=== PATIENT | male | born 1970 | race Caucasian/White ===

== ENCOUNTER → 2023-01-07 12:37 | Outpatient (BNVA) | payer SELFPAY | PROVIDERS: Visit Provider Nurse Practitioner Family | DX: R05.9 Cough, unspecified (principal); J40 Bronchitis, not specified as acute or chronic | CPT/HCPCS: 87426 ==

== ENCOUNTER 2023-01-11 15:33 | Emergency (ER) | payer SELFPAY ==
[2023-01-11] VITALS (8 sets, daily range): BP systolic 113–157; BP diastolic 68–97; PULSE 70–97; RESP 16–26; TEMP 36.9; O2SAT 94–96; BMI 22.8
--- NOTE | 2023-01-11 15:58 | CTR_ITS ---
PROCEDURE INFORMATION: Exam: CT Head Without Contrast Exam date and time: 01/11/2023 4:08 PM Age: 52 years old Clinical indication: Altered mental status/memory loss; Confusion or disorientation; Additional info: Stroke symptoms TECHNIQUE: Imaging protocol: Computed tomography of the head without contrast. Radiation optimization: All CT scans at this facility use at least one of these dose optimization techniques: automated exposure control; mA and/or kV adjustment per patient size (includes targeted exams where dose is matched to clinical indication); or iterative reconstruction. REPORTING DATA: Count of CT and Cardiac NM exams in prior 12 months: This patient has received 0 known CTs and 0 known cardiac nuclear medicine studies in the 12 months prior to the current study. COMPARISON: No relevant prior studies available. RADIATION DOSE METRICS: Total DLP (mGy-cm): 1072.79 FINDINGS: Brain: There is a heterogeneous mass in the right posterior parietal lobe measuring 4.5 x 3.7 cm in the AP/craniocaudad dimensions with surrounding vasogenic edema and sulcal effacement. There is patchy intermediate density in the left [employer] PERSON distribution. Cerebral ventricles: No ventriculomegaly. Paranasal sinuses: Visualized sinuses are unremarkable. No fluid levels. Mastoid air cells: Visualized mastoid air cells are well aerated. Bones/joints: Unremarkable. No acute fracture. Soft tissues: Unremarkable. CT/CT head wo con* [id number] IMPRESSION: 1. Patchy intermediate density in the left [employer]IN[employer] PERSON distribution raises concern for acute to subacute infarct. MRI of the brain with diffusion-weighted images is recommended for further evaluation. 2. There is a heterogeneous mass in the right posterior parietal lobe with surrounding vasogenic edema and sulcal effacement. MRI of the brain with and without contrast recommended for further evaluation.
--- NOTE | 2023-01-11 15:58 | XRR_ITS ---
PROCEDURE INFORMATION: Exam: XR Chest Exam date and time: 01/11/2023 4:03 PM Age: 52 years old Clinical indication: Cough; Additional info: Stroke symptoms TECHNIQUE: Imaging protocol: Radiologic exam of the chest. Views: 1 view. COMPARISON: No relevant prior studies available. FINDINGS: Lungs: There are hazy bibasilar opacities. Patchy opacities are present at the left lung base including a 13.5 mm somewhat nodular opacity at the lateral aspect of the left lung base. Pleural spaces: Small to moderate right pleural effusion. Blunting of the left costophrenic angle is suggestive of a small pleural effusion. Heart/Mediastinum: The heart demonstrates diffuse enlargement. Bones/joints: Unremarkable. Other findings: . XR/XR chest 1V portable [id number] IMPRESSION: 1. Small to moderate right pleural effusion. Blunting of the left costophrenic angle is suggestive of a small pleural effusion. In combination with cardiomegaly, findings raise concern for congestive heart failure. Please correlate clinically. 2. There are patchy opacities at the left lung base including a 13.5 mm somewhat nodular opacity at the lateral aspect of the left lung base. Differential includes pneumonia and/or underlying neoplasm. 3. Hazy bibasilar opacities are nonspecific and can be seen with pneumonia and/or pulmonary edema.
[2023-01-11 16:11] LABS: Basophils % 0.2 %; Eosinophils % 0.1 %; Hematocrit 44.5 % (37-53); Lymphocytes # 1.3 10^3/uL (0.8-4.8); Mean Corpuscular HGB Conc 32.8 g/dL (30-55); Mean Corpuscular Hemoglobin 29.1 pg (27-33); Mean Corpuscular Volume 88.8 fl (82-101); Mean Platelet Volume 8.9 fL (7.4-10.4); Monocytes # 1.4 10^3/uL (0.2-0.9); Monocytes % 9.6 %; Neutrophils # 11.88 10^3/uL (1.8-7.7); Neutrophils % 80.3 %; Nucleated Red Blood Cells % 0 %; Platelet Count 421 10^3/cmm (157-399); Red Blood Count 5.01 10^6/uL (3.85-5.65); Red Cell Distribution Width 13.7 % (12.1-15.1); White Blood Count 14.82 10^3/uL (3.29-11.43)
[2023-01-11 16:23] LABS: Alanine Aminotransferase 48 U/L (0-41); Albumin Level 3.6 g/dL (3.5-5.2); Alkaline Phosphatase 241 U/L (40-130); Aspartate Amino Transferase 31 U/L (0-40); Blood Urea Nitrogen 10 mg/dL (6-20); Calcium 9.3 mg/dL (8.5-10.5); Carbon Dioxide 25 mmol/L (22-29); Chloride 99 mmol/L (98-107); Globulin 3.6 g/dL (1.3-4.6); Glomerular Filtration Rate 117.5 mL/min (90-130); Glucose 127 mg/dL (65-115); Osmolality Calculated 289 mOsm/kg (285-295); Sodium 139 mmol/L (136-145); Total Bilirubin 0.7 mg/dL (0.15-1.2); Total Protein 7.2 g/dL (6.6-8.7)
[2023-01-11 16:49] LABS: INR 1.28 (0.8-1.2)
--- NOTE | 2023-01-11 16:49 | PC.PHAR ---
pts sister and brother in law verified the pts medications-states the pt doesnt take any medications normally-states the pt is on prednisone 20mg takes 2 tabs (40mg) daily for 5 days rx filled 01/07/23-pt also has a rx ready to be picked up from [facility] for a z pac rx written on 01/07/23-pts brother in law states the pt has 2 tabs left of the prednisone to take states last took on 01/10/23-pts brother in law states he gave the pt one 650mg tylenol on 01/10/23 as a one time dose-pts brother in law states the pt took a theraflu packet last friday-notes are made in the pharmacy comments
[2023-01-11 16:50] LABS: Partial Thromboplastin Time 26.7 SECONDS (23.9-36.7)
[2023-01-11] MEDS: cefTRIAXone 2,000 MG in sodium chloride 0.9% (plus) 50 ML 100 MG IV (16:50)
[2023-01-11 18:53] LABS: NT Pro B Type Natriuretic Pept 720 pg/mL (0-125)
--- NOTE | 2023-01-11 18:58 | ED_ITS ---
HPI - Neuro Symptoms/Deficit General: Chief Complaint: Neuro Symptoms/Deficit Stated Complaint: stroke symptoms Time Seen by Provider: 01/11/23 15:37 History of Present Illness: This patient is a 52-year-old white male brought in by his sister and [id number]. Patient does have a history of mental retardation. They state that he had been living on his own in his car for quite some time and then in a retirement. They took him and recently. They took him into the urgent care today for coughing. He had been placed on prednisone and Zithromax yesterday. While at the urgent care the provider was concerned about right upper extremity weakness and sent him to the emergency department for stroke work-up. The patient has no other chronic medical problems. He does smoke. His family members states that he was normal last night when he went to bed at midnight. He slept in until 11:30 AM this morning which is unusual for him. When he tried to open the screen door to go out and have a cigarette he seemed confused and could not get the door open. Was not using the right arm as he typically does either. They state he is not in his normal mental state. He is quite confused. Review of Systems General: Reports: 10 or more systems reviewed and unremarkable except in HPI and below Resp: Reports: productive cough Neuro: Reports: weakness in extremities (Right Upper) Physical Exam Const: COMMON NORMALS: no acute distress and patient oriented x3 GENERAL APPEARANCE: cooperative HENMT: COMMON NORMALS: normocephalic, atraumatic, Normal nasal mucous membranes and turbinates present, moist oral mucous membranes and oropharynx normal HEAD & SCALP: normal to inspection, normocephalic and atraumatic FACE & SINUS: normal facial exam NOSE: Normal nasal mucous membranes and turbinates present Eye: COMMON NORMALS: Equal, round and reactive pupils present, EOMs intact bilaterally and conjunctivae normal GENERAL EYE: appearance normal, both eyes and all related structures CONJUNCTIVA: Yes conjunctivae normal PUPIL: Yes Equal, round and reactive pupils present Neck/C-Spine: COMMON NORMALS: supple and no JVD Chest: COMMONS NORMALS: normal inspection of the chest Resp: COMMON NORMALS: normal respiratory effort and clear to auscultation bilaterally AUSCULTATION: clear to auscultation bilaterally Cardio: COMMON NORMALS: no JVD, regular rate, regular rhythm, No gallops present (Cardio), No murmurs present (Cardio) and No rub (Cardio) RATE: regular rate RHYTHM: regular rhythm GI: COMMON NORMALS: Normal to inspection, nondistended, normoactive bowel sounds present, Soft to palpation and non-tender AUSCULTATION: Yes normoactive bowel sounds PALPATION: Yes Soft to palpation : COMMON NORMALS: Yes no CVA tenderness BLADDER/KIDNEY EXAM: Yes no CVA tenderness Back/Pelvis: COMMON NORMALS: no CVA tenderness and thoracic and lumbar spine normal to inspection Extremity: COMMON NORMALS: normal to inspection Neuro: COMMON NORMALS: patient oriented x3 SPEECH: abnormal speech and expressive aphasia (mild) MOTOR EXAM: Other motor observations present (R Upper Ext Weakness 3/5) Psych: COMMON NORMALS: mental status grossly normal, Normal thought process present and cooperative THOUGHT PROCESS: Normal thought process present Skin: COMMON NORMALS: no rashes or lesions noted, turgor normal and no jaundice GENERAL SKIN EXAM: no rashes or lesions noted and turgor normal Course Vital Signs: Vital signs: Vital Signs Temperature 98.4 F 01/11/23 15:41 Pulse Rate 84 01/11/23 18:06 Respiratory Rate 16 01/11/23 18:06 Blood Pressure 132/79 01/11/23 18:06 Pulse Oximetry 94 01/11/23 18:06 Oxygen Delivery Me thod Room Air 01/11/23 18:06 MDM - Neuro Symptoms/Deficit Medical Decision Making CBC reveals a white blood cell count of 14.9. CMP was normal. Chest x-ray reveals either a right pleural effusion or infiltrate. Radiologist also noted a nodular opacity in the left lung base. CT of the head was read by the radiologist. There is a large mass in the right parietal lobe with surrounding vasogenic edema. There is also an area in the left hemisphere concerning for acute/subacute infarct in the [employer] distribution. Brain MRI recommended. We did consult teleneurology and I spoke with Dr. Doll, neurologist with [facility]. He also reviewed the CT scan. We did attempt to perform the MRI here but the patient was not cooperative and got quite agitated in the scanner. He will need sedation. Dr. Doll does not recommend any intervention at this time. Patient needs to be transferred to a facility where he can get an MRI immediately. Patient's family are requesting him to go to [facility]. I did discuss the case with Janel, nurse practitioner with the hospitalist service at [facility]. She did accept the patient on behalf of Dr. Khalil. Patient will be transferred shortly. He is stable. Patient was given 2 g of Rocephin IV as well for presumed pneumonia. Lab Data 01/11/23 16:00 01/11/23 16:00 Radiology Impressions Chest X-Ray 01/11/23 15:58 IMPRESSION: 1. Small to moderate right pleural effusion. Blunting of the left costophrenic angle is suggestive of a small pleural effusion. In combination with cardiomegaly, findings raise concern for congestive heart failure. Please correlate clinically. 2. There are patchy opacities at the left lung base including a 13.5 mm somewhat nodular opacity at the lateral aspect of the left lung base. Differential includes pneumonia and/or underlying neoplasm. 3. Hazy bibasilar opacities are nonspecific and can be seen with pneumonia and/or pulmonary edema. Head CT 01/11/23 15:58 IMPRESSION: 1. Patchy intermediate density in the left [employer] distribution raises concern for acute to subacute infarct. MRI of the brain with diffusion-weighted images is recommended for further evaluation. 2. There is a heterogeneous mass in the right posterior parietal lobe with surrounding vasogenic edema and sulcal effacement. MRI of the brain with and without contrast recommended for further evaluation. ADDENDUM: 01/11/23 170 CRITICAL RESULT: The study was personally discussed on the telephone with ALTAF Jackson on 01/11/2023 5:02 PM CDT. The results were understood and acknowledged. Laboratory Results WBC 14.82 10^3/uL (3.29-11.43) H 01/11/23 16:00 RBC 5.01 10^6/uL (3.85-5.65) 01/11/23 16:00 Hgb 14.60 g/dL (11.27-16.99) 01/11/23 16:00 Hct 44.5 % (37-53) 01/11/23 16:00 MCV 88.8 fl (82-101) 01/11/23 16:00 MCH 29.1 pg (27-33) 01/11/23 16:00 MCHC 32.8 g/dL (30-55) 01/11/23 16:00 RDW 13.7 % (12.1-15.1) 01/11/23 16:00 Plt Count 421 10^3/cmm (157-399) H 01/11/23 16:00 MPV 8.9 fL (7.4-10.4) 01/11/23 16:00 Neut % (Auto) 80.3 % 01/11/23 16:00 Lymph % (Auto) 9.0 % 01/11/23 16:00 Morris % (Auto) 9.6 % 01/11/23 16:00 Eos % (Auto) 0.1 % 01/11/23 16:00 Baso % (Auto) 0.2 % 01/11/23 16:00 Neut # (Auto) 11.88 10^3/uL (1.8-7.7) H 01/11/23 16:00 Lymph # (Auto) 1.3 10^3/uL (0.8-4.8) 01/11/23 16:00 Morris # (Auto) 1.4 10^3/uL (0.2-0.9) H 01/11/23 16:00 Eos # (Auto) 0.0 10^3/uL (0.0-0.8) 01/11/23 16:00 Baso # (Auto) 0.0 10^3/uL (0.0-0.1) 01/11/23 16:00 Nucleated RBC % (auto) 0 % 01/11/23 16:00 Nucleated RBCs # 0.0 /100WBC 01/11/23 16:00 PT 16.40 SECONDS (12.1-14.9) H 01/11/23 16:00 INR 1.28 (0.8-1.2) H 01/11/23 16:00 APTT 26.7 SECONDS (23.9-36.7) 01/11/23 16:00 Sodium 139 mmol/L (136-145) 01/11/23 16:00 Potassium 4.0 mmol/L (3.5-5.1) 01/11/23 16:00 Chloride 99 mmol/L (98-107) 01/11/23 16:00 Carbon Dioxide 25 mmol/L (22-29) 01/11/23 16:00 Anion Gap 19.0 (5-19) 01/11/23 16:00 BUN 10 mg/dL (6-20) 01/11/23 16:00 Creatinine 0.7 mg/dL (0.7-1.2) 01/11/23 16:00 GFR Calculation 117.5 mL/min (90-130) 01/11/23 16:00 Glucose 127 mg/dL (65-115) H 01/11/23 16:00 Calculated Osmolality 289 mOsm/kg (285-295) 01/11/23 16:00 Calcium 9.3 mg/dL (8.5-10.5) 01/11/23 16:00 Total Bilirubin 0.7 mg/dL (0.15-1.2) 01/11/23 16:00 AST 31 U/L (0-40) 01/11/23 16:00 ALT 48 U/L (0-41) H 01/11/23 16:00 Alkaline Phosphatase 241 U/L (40-130) H 01/11/23 16:00 NT-Pro-B Natriuret Pep 720 pg/mL (0-125) H 01/11/23 16:00 Total Protein 7.2 g/dL (6.6-8.7) 01/11/23 16:00 Albumin 3.6 g/dL (3.5-5.2) 01/11/23 16:00 Globulin 3.6 g/dL (1.3-4.6) 01/11/23 16:00 All radiology interpretation(s) finalized by discharge Discharge Plan Discharge Patient Disposition: Xfer Short-Term Hosp Clinical Impression: Brain mass, Pneumonia Condition: Stable Coding Level of Care Code ED Merchandise Complaint Adjuster for Mery Silverman
[2023-01-11] MEDS: LORazepam 2 mg/mL INJ 1 mL IVP (20:15)
== END 2023-01-11 22:37 | disposition short-term general hospital (02) ==
PROVIDERS: Emergency Provider Emergency Medicine
DX: J18.9 Pneumonia, unspecified organism (principal); G93.9 Disorder of brain, unspecified; F79 Unspecified intellectual disabilities; Z59.01 Sheltered homelessness
CPT/HCPCS: 36415; 70450; 71045; 80053; 83880; 85025; 85610; 85730; 87040; 96374; 96375; 99284; J0696; J2060